=== PATIENT | female | born 1990 | race American Indian/Alaskan Native ===

== ENCOUNTER 2016-09-20 04:19 | Emergency (ER) | payer BC ==
[2016-09-20] MEDS ORDERED: TYLENOL ONE (04:28)
[2016-09-20 04:35] VITALS: BP 123/83
--- NOTE | 2016-09-20 07:34 | Emergency Department Report ---
ED ENT HPI - General Chief complaint: Earache Stated complaint: RT EARACHE Time Seen by Provider: 09/20/16 07:19 Source: patient Mode of arrival: Ambulatory Limitations: No Limitations - History of Present Illness Initial comments: PT c/o R earache since 299. PT states she had recent URI that started on Thursday. [place] getting sick after being around some dust. PT states that her ear feels full. PT states Tylenol helps her ear pain. MD complaint: ear pain -: Gradual, hour(s) Time: 03:00 Location: R ear Severity: mild Severity scale (0 -10): 3 Quality: constant, other (pressure ) Consistency: constant Improves with: other medication (Tylenol given in Triage) Context- Ear: recent illness (congestion and sore throat started on Thursday ) Associated Symptoms: sore throat. denies: fever, cough, discharge from ear, rhinorrhea - Related Data Previous Rx's Medication Instructions Recorded Last Taken Type Amoxicillin 500 mg PO BID #20 capsule 09/20/16 Unknown Rx Ibuprofen [Motrin] 600 mg PO Q8H PRN #15 tablet 09/20/16 Unknown Rx Allergies Allergy/AdvReac Type Severity Reaction Status Date / Time No Known Allergies Allergy Verified 09/20/16 04:30 ED Dental HPI - General Chief complaint: Earache Stated complaint: RT EARACHE Time Seen by Provider: 09/20/16 07:19 Source: patient Mode of arrival: Ambulatory Limitations: No Limitations - Related Data Previous Rx's Medication Instructions Recorded Last Taken Type Amoxicillin 500 mg PO BID #20 capsule 09/20/16 Unknown Rx Ibuprofen [Motrin] 600 mg PO Q8H PRN #15 tablet 09/20/16 Unknown Rx Allergies Allergy/AdvReac Type Severity Reaction Status Date / Time No Known Allergies Allergy Verified 09/20/16 04:30 ED Review of Systems ROS: Stated complaint: RT EARACHE Other details as noted in HPI Comment: All other systems reviewed and negative Constitutional: denies: fever ENT: as per HPI Respiratory: denies: cough Gastrointestinal: denies: abdominal pain Genitourinary: denies: abnormal menses Neurological: denies: headache ED Past Medical Hx - Past Medical History Previous Medical History?: No - Surgical History Past Surgical History?: No - Social History Smoking Status: Never Smoker Substance Use Type: None - Medications Home Medications: Home Medications Medication Instructions Recorded Confirmed Last Taken Type Amoxicillin 500 mg PO BID #20 capsule 09/20/16 Unknown Rx Ibuprofen [Motrin] 600 mg PO Q8H PRN #15 tablet 09/20/16 Unknown Rx ED Physical Exam - General Limitations: No Limitations General appearance: alert, in no apparent distress - Head Head exam: Present: atraumatic, normocephalic, normal inspection - Eye Eye exam: Present: normal appearance, PERRL, EOMI. Absent: conjunctival injection - ENT ENT exam: Present: normal orophraynx, mucous membranes dry, normal external ear exam, other (L TM WNL ) - Expanded ENT Exam Expanded TM/Canal exam: Erythema: Right TM, Bulging: Right TM, Effusion: Right TM, Loss of Landmarks: Right TM Mouth exam: Absent: drooling, trismus Throat exam: Negative: tonsillar exudate - Neck Neck exam: Present: normal inspection. Absent: tenderness - Respiratory Respiratory exam: Present: normal lung sounds bilaterally. Absent: respiratory distress, wheezes - Cardiovascular Cardiovascular Exam: Present: regular rate, normal rhythm - Extremities Exam Extremities exam: Present: normal inspection, full ROM - Back Exam Back exam: Present: normal inspection, full ROM. Absent: tenderness - Neurological Exam Neurological exam: Present: alert, oriented X3 - Psychiatric Psychiatric exam: Present: normal affect, normal mood - Skin Skin exam: Present: warm, dry, intact, normal color ED Course Vital Signs 09/20/16 04:30 Temperature 98.0 F Pulse Rate 75 Respiratory 18 Rate Blood Pressure 123/83 [Right] O2 Sat by Pulse 100 Oximetry - Reevaluation(s) Reevaluation #1: 09/20/16 07:35 PT aware of PE findings and dx. PT has no questions at this time. - Pulse Oximetry Interpretation Digit-Finger Initial Pulse Oximetry Readin Actions Taken: none ED Medical Decision Making - Differential Diagnosis om, oe, fb Critical Care Time: No Critical care attestation.: If time is entered above; I have spent that time in minutes in the direct care of this critically ill patient, excluding procedure time. ED Disposition Clinical Impression: Right otitis media Qualifiers: Otitis media type: unspecified Chronicity: unspecified Qualified Code(s): H66.91 - Otitis media, unspecified, right ear Disposition: DC-01 TO HOME OR SELFCARE Is pt being admited?: No Does the pt Need Aspirin: No Condition: Stable Instructions: Otitis Media (ED) Prescriptions: Amoxicillin 500 mg PO BID #20 capsule Ibuprofen [Motrin] 600 mg PO Q8H PRN #15 tablet PRN Reason: Pain Referrals: [facility] [Outside] - 3-5 Days [facility] [Outside] - 3-5 Days PRIMARY CAREMD [Primary Care Provider] - 3-5 Days JSOE EUCEDA MD [Staff Physician] - 3-5 Days Forms: Work/School Release Form(ED) Time of Disposition: 07:37
== END 2016-09-20 07:45 | disposition home or self-care (01) ==
LOC: ED 04:19
DX: H66.91 Otitis media, unspecified, right ear (principal)
CPT/HCPCS: 99282